=== PATIENT | male | born 1990 | race American Indian/Alaskan Native ===

== ENCOUNTER 2019-06-20 14:47 | Emergency (ER) | payer SELFPAY ==
[2019-06-20 14:57] VITALS: BP 161/88
--- NOTE | 2019-06-20 14:58 | Event Note ---
ED Screening Note Date of service: 06/20/19 Time: 14:57 ED Screening Note: 28 y o male presents with denise, bilat knee pain and lower back pain s/p fall outside today ground level fall This initial assessment/diagnostic orders/clinical plan/treatment(s) is/are subject to change based on patients health status, clinical progression and re- assessment by fellow clinical providers in the ED. Further treatment and workup at subsequent clinical providers discretion. Patient/guardian urged not to elope from the ED as their condition may be serious if not clinically assessed and managed. Initial orders include: ACC eval
[2019-06-20] MEDS ORDERED: CYCLOBENZAPRINE 10 MG TAB PO ONE (15:11)
[2019-06-20] MEDS ORDERED: IBUPROFEN 800 MG TAB PO ONE (15:11)
--- NOTE | 2019-06-20 15:13 | Emergency Department Report ---
ED Fall HPI - General Chief Complaint: Fall Stated Complaint: BACK AND NECK PAIN Time Seen by Provider: 06/20/19 15:11 Source: patient Mode of arrival: Ambulatory - History of Present Illness Initial Comments: Patient is a 28-year-old -[place] male who fell coming down the steps today. He states it was a mechanical fall and he slipped landing on his knees but then somehow twisted and hurt his back. He has a contusion across his lumbar spine. He denies LOC. He is ambulatory to the ER. He took [employer] to get here. 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 Witnessed: no Place Fall Occurred: home Loss of Consciousness: none Prolonged Down Time?: no Symptoms Prior to Fall: none Context: tripped/slipped Associated Symptoms: headache - Related Data Previous Rx's Medication Instructions Recorded Last Taken Type Cyclobenzaprine [Flexeril] 10 mg PO TID PRN #10 tablet 06/20/19 Unknown Rx Ibuprofen [Motrin] 800 mg PO Q8HR PRN #30 tablet 06/20/19 Unknown Rx Allergies Allergy/AdvReac Type Severity Reaction Status Date / Time No Known Allergies Allergy Unverified 06/20/19 14:49 ED Review of Systems ROS: Stated complaint: BACK AND NECK PAIN Other details as noted in HPI Comment: All other systems reviewed and negative ED Past Medical Hx - Past Medical History Hx Hypertension: Yes Additional medical history: CARPAL TUNNEL - Surgical History Past Surgical History?: Yes Additional Surgical History: SINUS - Family History Family history: no significant - Social History Smoking Status: Current Every Day Smoker Substance Use Type: None - Medications Home Medications: Home Medications Medication Instructions Recorded Confirmed Last Taken Type Cyclobenzaprine [Flexeril] 10 mg PO TID PRN #10 tablet 06/20/19 Unknown Rx Ibuprofen [Motrin] 800 mg PO Q8HR PRN #30 tablet 06/20/19 Unknown Rx ED Physical Exam - General Limitations: No Limitations General appearance: alert, in no apparent distress - Head Head exam: Present: atraumatic, normocephalic - Eye Eye exam: Present: normal appearance - ENT ENT exam: Present: mucous membranes moist - Neck Neck exam: Present: normal inspection - Respiratory Respiratory exam: Present: normal lung sounds bilaterally. Absent: respiratory distress - Cardiovascular Cardiovascular Exam: Present: regular rate, normal rhythm. Absent: systolic murmur, diastolic murmur, rubs, gallop - GI/Abdominal GI/Abdominal exam: Present: soft, normal bowel sounds - Rectal Rectal exam: Present: deferred - Extremities Exam Extremities exam: Present: normal inspection - Back Exam Back exam: Present: other (BRUISE ACROSS LUMBAR SPINE) - Neurological Exam Neurological exam: Present: alert, oriented X3 - Psychiatric Psychiatric exam: Present: normal affect, normal mood - Skin Skin exam: Present: warm, dry, intact, normal color. Absent: rash ED Course Vital Signs 06/20/19 06/20/19 14:52 15:17 Temperature 98.0 F Pulse Rate 65 Respiratory 18 18 Rate Blood Pressure 161/88 O2 Sat by Pulse 100 Oximetry ED Medical Decision Making - Radiology Data Radiology results: report reviewed, image reviewed - Medical Decision Making xray noted medicated for pain in ER ambulatory with no focal neuro def Vital Signs 06/20/19 06/20/19 14:52 15:17 Temperature 98.0 F Pulse Rate 65 Respiratory 18 18 Rate Blood Pressure 161/88 O2 Sat by Pulse 100 Oximetry Patient DC home with discharge plan of care and PCP follow-up - Differential Diagnosis Rule out fracture spinous process Critical care attestation.: If time is entered above; I have spent that time in minutes in the direct care of this critically ill patient, excluding procedure time. ED Disposition Clinical Impression: Fall from ground level, Accident due to mechanical fall without injury, Contusion, back, Abrasion of left arm Disposition: DC-01 TO HOME OR SELFCARE Is pt being admited?: No Does the pt Need Aspirin: No Condition: Stable Instructions: Contusion in Adults (ED) Prescriptions: Cyclobenzaprine [Flexeril] 10 mg PO TID PRN #10 tablet PRN Reason: Muscle Spasm Ibuprofen [Motrin] 800 mg PO Q8HR PRN #30 tablet PRN Reason: Pain, Moderate (4-6) Referrals: SINTIA SHARMA MD [Staff Physician] - 3-5 Days Time of Disposition: 15:12
--- NOTE | 2019-06-20 15:39 | XRay Report ---
LUMBAR SPINE 3 VIEWS INDICATION / CLINICAL INFORMATION: PAIN SP FALL. COMPARISON: None available. FINDINGS: VERTEBRAE: No acute fracture. No significant malalignment. DISC SPACES / FACET JOINTS:No significant abnormality. PARASPINAL SOFT TISSUES:No significant abnormality. IMPRESSION: Normal study Signer Name: Barber Damian MD Signed: 06/20/2019 3:34 PM Workstation Name: [id number]
== END 2019-06-20 15:58 | disposition home or self-care (01) ==
LOC: ED 14:47
DX: S30.0XXA Contusion of lower back and pelvis, initial encounter (principal); S40.812A Abrasion of left upper arm, initial encounter; R51 Headache; F17.200 Nicotine dependence, unspecified, uncomplicated; I10 Essential (primary) hypertension; Z98.890 Other specified postprocedural states; Z79.899 Other long term (current) drug therapy; W10.8XXA Fall (on) (from) other stairs and steps, initial encounter; Y93.89 Activity, other specified; Y92.89 Other specified places as the place of occurrence of the external cause; Y99.8 Other external cause status
CPT/HCPCS: 72100; 99283